=== PATIENT | male | born 1990 | race Caucasian/White ===

== ENCOUNTER 2017-09-26 10:53 | Day surgery (SDC) | payer SELFPAY ==
[2017-09-21 13:43] VITALS: BMI 22.6
[2017-09-26] MEDS ORDERED: MIDAZOLAM HCL 2 MG/2 ML SINGLE DOSE VIAL ONE (12:46)
[2017-09-26] MEDS ORDERED: ROCURONIUM BROMIDE 50 MG/5 ML VIAL ONE ×2 (12:54→13:58)
[2017-09-26] MEDS ORDERED: PROPOFOL 20 ML ONE ×6 (12:54→16:34)
[2017-09-26] MEDS ORDERED: fentaNYL CITRATE 250 MCG/5 ML VIAL ONE ×2 (12:54→13:27)
[2017-09-26] MEDS ORDERED: SUCCINYLCHOLINE CHLORIDE 200 MG/10 ML VIAL ONE (12:54)
[2017-09-26] MEDS ORDERED: ceFAZolin SODIUM 1 GM VIAL ONE (13:14)
[2017-09-26] MEDS ORDERED: DEXAMETHASONE SOD PHOSPHATE 4 MG/1 ML VIAL ONE (13:14)
[2017-09-26] MEDS ORDERED: ONDANSETRON 4 MG/2 ML VIAL ONE ×2 (13:14→17:09)
[2017-09-26] MEDS ORDERED: LIDOCAINE HCL 2% JELLY (5 ML/TUBE) ONE (13:14)
[2017-09-26] MEDS ORDERED: OXYMETAZOLINE 0.05% NASAL SOLUTION 15 ML BOTTLE NS ONE ×2 (14:23→17:13)
[2017-09-26] MEDS ORDERED: LIDOCAINE 1%/EPI 1:100000 (20 ML MULTI DOSE VIAL) ONE (15:08)
[2017-09-26] MEDS ORDERED: oxyCODONE HCL 5 MG TABLET PO PRN ×4 (15:48→18:04)
[2017-09-26] MEDS ORDERED: PROMETHAZINE HCL 25 MG/1 ML VIAL IVPB PRN (15:48)
[2017-09-26] MEDS ORDERED: ONDANSETRON 4 MG/2 ML VIAL IVPUSH PRN (15:48)
[2017-09-26] MEDS ORDERED: LACTATED RINGERS SOLUTION 1,000 ML IV SCH ×2 (16:00→18:15)
[2017-09-26] MEDS ORDERED: BACITRACIN 15 GM TUBE TOPICAL OINTMENT ONE (17:09)
[2017-09-26] MEDS ORDERED: LIDOCAINE 1%/EPI 1:100000 (50 ML MULTI DOSE VIAL) INF ONE (17:38)
[2017-09-26] MEDS ORDERED: ONDANSETRON 4 MG/2 ML VIAL IVPB PRN (18:04)
--- NOTE | 2017-09-26 18:08 | OP ---
Operative Note - Note: Operative Date: 09/26/17 Pre-Operative Diagnosis: nasal deformity and fracture Operation: rhinoplasty, septoplasty, left cheese packer graft placement Post-Operative Diagnosis: Same as Pre-op Surgeon: Angel Dee Anesthesia: General Specimens Removed: cartilagenous septum Operative Report Dictated: Yes
[2017-09-26 18:56] VITALS: TEMP 97.8
[2017-09-26 19:24] VITALS: BP 135/74; PULSE 66
--- NOTE | 2017-10-03 12:48 | PATH ---
Surgical Pathology Report Patient Name: ANN SHARMA Med. Rec. #: [id number] /Age/Gender: 1990 (Age: 27) / M Account: [id number] Location: [facility] Taken: 09/26/2017 Received: 09/26/2017 Reported: 10/03/2017 Physicians: Angel Dee Specimen(s) Received SEPTUM CARTILEDGE Clinical History Cosmetic, nasal deformity Final Diagnosis SEPTUM, CARTILAGE, SEPTOPLASTY: CARTILAGE AND BONE, CONSISTENT WITH NASAL SEPTUM. Electronically Signed Araceli Oneil M.D. Gross Description Received in formalin labeled "septum cartilage," is a 2.2 x 1.3 x 0.1 cm portion of larsen cartilage. The specimen is sectioned and outside sales account representative sections are submitted in one cassette. /09/27/2017 [facility]09/27/2017
== END 2017-09-26 19:15 | disposition home or self-care (01) ==
LOC: FASU 10:53
PROVIDERS: ATTEND Plastic Surgery
PROC: 090 Ear, Nose, Sinus, Alteration (ICD-10-PCS; principal; 2017-09-26 13:35)
DX: Z41.1 Encounter for cosmetic surgery (principal); M95.0 Acquired deformity of nose
CPT/HCPCS: 88302-TC; 94760